=== PATIENT | female | born 1980 | race Two or more races ===

== ENCOUNTER 2019-06-03 09:52 | Emergency (ER) | payer BC ==
[~2019-06-03] VITALS: Ht 170.2 cm; Wt 66.2 kg
--- NOTE | 2019-06-03 10:00 | NUR ---
AAOX3, came to ER c/o vaginal bleeding, bright red in color this morning, 9 weeks , A1. Denies abdominal pain today but states the she had abdominal cramp yesterday. RR is even and unlabored with nad noted. skin is warm and dry. Awaiting md for eval.
[2019-06-03] MEDS ORDERED: ACETAMINOPHEN 325 MG TABLET ONE (10:12)
--- NOTE | 2019-06-03 10:15 | NUR ---
urine collected and sent to lab.
[2019-06-03 10:18] LABS: APPEARANCE,URINE Clear (CLEAR); BILIRUBIN,URINE SMALL (NEGATIVE); BLOOD, URINE Large Ery/uL (NEGATIVE); COLOR,URINE Yellow (YELLOW); KETONES,URINE Negative (NEGATIVE); LEUKOCYTE ESTERASE ,URINE Trace (NEGATIVE); NITRITE, URINE Negative (NEGATIVE); PH,URINE 5.5 (5.0-8.0); PROTEIN,URINE 30 mg/dl (NEGATIVE); UGLUCOSE Negative (NEGATIVE); UROBILINOGEN,URINE 0.2 EU/dL (0.2)
[2019-06-03 10:22] LABS: BASOPHILS % (AUTO) 0.5 % (0.0-2.0); EOSINOPHILS % (AUTO) 1.9 % (0.0-6.0); HEMATOCRIT 38 % (33-45); HEMOGLOBIN 12.9 g/dL (11.5-14.8); LYMPHOCYTES # (AUTO) 1.5 /CMM (0.8-4.8); LYMPHOCYTES % (AUTO) 28.1 % (20.0-44.0); MEAN CORPUSCULAR HGB CONC 34 g/dl (31.0-36.0); MEAN CORPUSCULAR VOLUME 91 fL (82-100); MONOCYTES # (AUTO) 0.4 /CMM (0.1-1.30); NEUTROPHILS # (AUTO) 3.4 /CMM (1.8-8.9); NEUTROPHILS % (AUTO) 62.5 % (43.0-81.0); PLATELET COUNT (AUTO) 261 /CMM (150-450); RED BLOOD CELL COUNT(AUTO) 4.16 MIL/uL (4.0-5.2); WHITE BLOOD COUNT (AUTO) 5.5 K/uL (4.3-11.0)
[2019-06-03] MEDS ORDERED: ACETAMINOPHEN 325 MG TABLET PO ONE (10:30)
[2019-06-03 10:34] LABS: BILIRUBIN,DIRECT 0.1 mg/dL (0.0-0.2); BILIRUBIN,TOTAL 0.4 mg/dL (0.2-1.0); TOTAL PROTEIN, SERUM 7.5 g/dL (6.4-8.2)
[2019-06-03 10:35] LABS: BACTERIA,URINE Few /HPF (None Seen); SQUAMOUS EPITHELIAL CELL,UR Few /HPF (None Seen)
[2019-06-03 11:29] VITALS: BP 100/61
--- NOTE | 2019-06-03 11:30 | NUR ---
Patient discharged to home in stable condition. Written and verbal after care instructions given. Patient verbalizes understanding of instruction.
== END 2019-06-03 11:30 | disposition home or self-care (01) ==
LOC: ER 09:52
DX: O02.1 Missed abortion (principal); Z88.1 Allergy status to other antibiotic agents
CPT/HCPCS: 36415; 76856-TC; 80076-TC; 81000-TC; 84702-TC; 85025-TC; 87086-TC